=== PATIENT | male | born 1995 | race African-American/Black ===

== ENCOUNTER 2016-08-11 01:41 | Emergency (ER) | payer OTHER ==
[~2016-08-11] VITALS: Ht 177.8 cm; Wt 72.6 kg
[2016-08-11] MEDS ORDERED: LIDOCAINE W/EPINEPHRINE 1% 20ML VIAL SC ONE (07:30)
[2016-08-11] MEDS ORDERED: BUPIVACAINE HCL 0.5% 10 ML VIAL SC ONE (07:30)
[2016-08-11 12:13] VITALS: BP 135/80
== END 2016-08-11 12:40 | disposition home or self-care (01) ==
LOC: M ED 03:11
DX: S01.81XA Laceration without foreign body of other part of head, initial encounter (principal); S01.01XA Laceration without foreign body of scalp, initial encounter; Y04.8XXA Assault by other bodily force, initial encounter; Y92.410 Unspecified street and highway as the place of occurrence of the external cause; Y93.89 Activity, other specified; Y99.8 Other external cause status

== ENCOUNTER 2017-01-24 09:57 | Emergency (ER) | payer OTHER ==
[~2017-01-24] VITALS: Ht 177.8 cm; Wt 79.1 kg
[2017-01-24] MEDS ORDERED: DULO1CAP PO (10:07)
[2017-01-24] MEDS ORDERED: METOCLOPRAMIDE INJ 10MG/2ML VIAL (J2765) IV ONE (10:45)
[2017-01-24] MEDS ORDERED: NS 1,000 ML IV ONE (10:45)
[2017-01-24] MEDS ORDERED: KETOROLAC 30 MG/ML VIAL (J1885) IV ONE (10:45)
[2017-01-24] MEDS ORDERED: diphenhydrAMINE INJ 50MG/ML VIAL (J1200) IV ONE (10:45)
[2017-01-24 12:19] VITALS: BP 113/73
== END 2017-01-24 12:21 | disposition home or self-care (01) ==
LOC: M ED 09:57 → EDBD 09:57 → M ED 12:21
DX: G43.909 Migraine, unspecified, not intractable, without status migrainosus (principal); Z87.820 Personal history of traumatic brain injury; Z79.899 Other long term (current) drug therapy
CPT/HCPCS: 96361; 96374; 96375; 99283; J1200; J1885; J2765

== ENCOUNTER 2017-06-04 16:33 | Emergency (ER) | payer OTHER ==
[2017-06-04 22:07] LABS: AMORPHOUS SEDIMENT RFX MODERATE (NEGATIVE); KETONE, URINE AUTO RFX NEGATIVE (NEGATIVE); LEUKOCYTE ESTERASE UR AUTO RFX NEGATIVE (NEGATIVE); MUCUS, URINE RFX SMALL (NEGATIVE); NITRITE, URINE AUTO RFX NEGATIVE (NEGATIVE); RBC, URINE AUTO RFX 122 /HPF (0-3); SPECIFIC GRAVITY UR AUTO RFX 1.015 (1.002-1.035); SQUAM EPITHELIAL CELL UR AURFX 0 /HPF (0-6); WBC, URINE AUTO RFX 2 /HPF (0-3)
[2017-06-04 22:59] LABS: ANION GAP 7 MEQ/L (8-16); BLOOD UREA NITROGEN 11 MG/DL (7-18); CALCIUM LEVEL 9.3 MG/DL (8.5-10.1); CARBON DIOXIDE LEVEL 29 MEQ/L (21-32); CHLORIDE LEVEL 103 MEQ/L (98-107); CPK CREATINE PHOSPHOKINASE 158 U/L (39-308); CREATININE FOR GFR 0.87 MG/DL (0.70-1.30); GLOMERULAR FILTRATION RATE > 60.0 (>60); GLUCOSE, FASTING 88 MG/DL (70-100); POTASSIUM SERUM 3.9 MEQ/L (3.5-5.1); SODIUM LEVEL 139 MEQ/L (136-145)
[2017-06-05 09:48] LABS: CHLAMYDIA DNA AMPLIFICATION NEGATIVE (NEGATIVE); GC DNA AMPLIFICATION NEGATIVE (NEGATIVE)
== END 2017-06-04 23:46 | disposition home or self-care (01) ==
LOC: M ED 16:33
DX: R31.9 Hematuria, unspecified (principal); R36.1 Hematospermia; F41.9 Anxiety disorder, unspecified; F33.9 Major depressive disorder, recurrent, unspecified; G43.909 Migraine, unspecified, not intractable, without status migrainosus; Z87.820 Personal history of traumatic brain injury
CPT/HCPCS: 82550

== ENCOUNTER → 2017-06-06 | Outpatient (REF) | payer OTHER ==
[2017-06-06 20:16] LABS: BASO % 0.3 % (0.0-1.0); EOS # 0.1 10^3/uL (0.0-0.50); EOS % 0.8 % (0.0-3.0); HEMATOCRIT 43.4 % (42.0-52.0); HEMOGLOBIN 14.1 g/dl (14.0-18.0); IMMATURE GRANULOCYTE % 0.2 % (0-3.0); LYMPH # 2.1 10^3/uL (1.5-6.5); MEAN CORPUSCULAR HEMOGLOBIN 28.4 pg (27.0-33.0); MEAN CORPUSCULAR HGB CONC 32.5 g/dl (32.0-36.5); MEAN CORPUSCULAR VOLUME 87.5 fl (80.0-96.0); MONO # 0.4 10^3/uL (0.0-0.8); MONO % 5.4 % (0.0-5.0); NEUTROPHILS # 3.9 10^3/uL (1.8-7.7); NEUTROPHILS % 61.3 % (36.0-66.0); PLATELET COUNT, AUTOMATED 226 10^3/uL (150-450); RED BLOOD COUNT 4.96 10^6/uL (4.30-6.10); RED CELL DISTRIBUTION WIDTH 12.4 % (11.5-14.5); WHITE BLOOD COUNT 6.4 10^3/uL (4.0-10.0)
[2017-06-06 20:33] LABS: ALBUMIN 4.5 GM/DL (3.2-5.2); ALBUMIN/GLOBULIN RATIO 1.36 (1.00-1.93); ALKALINE PHOSPHATASE 97 U/L (45-117); ALT/SGPT 37 U/L (12-78); ANION GAP 6 MEQ/L (8-16); AST/SGOT 21 U/L (7-37); BILIRUBIN,TOTAL 0.5 MG/DL (0.2-1.0); BLOOD UREA NITROGEN 14 MG/DL (7-18); CALCIUM LEVEL 8.8 MG/DL (8.5-10.1); CARBON DIOXIDE LEVEL 30 MEQ/L (21-32); CHLORIDE LEVEL 101 MEQ/L (98-107); CREATININE FOR GFR 0.94 MG/DL (0.70-1.30); GLOMERULAR FILTRATION RATE > 60.0 (>60); GLUCOSE, FASTING 75 MG/DL (70-100); SODIUM LEVEL 137 MEQ/L (136-145); TOTAL PROTEIN 7.8 GM/DL (6.4-8.2); VALPROIC ACID (DEPAKOTE) < 3.0 UG/ML (50.0-100.0)
== END ==
LOC: M LABNEURO 18:39
DX: G44.229 Chronic tension-type headache, not intractable (principal); G43.009 Migraine without aura, not intractable, without status migrainosus
CPT/HCPCS: 80164

== ENCOUNTER → 2017-06-14 | Outpatient (REF) | payer OTHER ==
[2017-06-14 14:07] LABS: APPEARANCE, URINE CLEAR (CLEAR); BACTERIA, URINE AUTO NEGATIVE (NEGATIVE); BILIRUBIN, URINE AUTO NEGATIVE (NEGATIVE); BLOOD, URINE BLOOD NEGATIVE (NEGATIVE); COLOR, URINE YELLOW (YELLOW); GLUCOSE, URINE (UA) AUTO NEGATIVE (NEGATIVE); KETONE, URINE AUTO NEGATIVE (NEGATIVE); LEUKOCYTE ESTERASE, URINE AUTO NEGATIVE (NEGATIVE); MUCUS, URINE SMALL (NEGATIVE); NITRITE, URINE AUTO NEGATIVE (NEGATIVE); PROTEIN, URINE AUTO NEGATIVE (NEGATIVE); RBC, URINE AUTO 0 /HPF (0-3); SPECIFIC GRAVITY URINE AUTO 1.028 (1.002-1.035); SQUAMOUS EPITHELIAL CELL UR AU 0 /HPF (0-6); UROBILINOGEN, URINE AUTO 0.2 mg/dL (0.0-2.0); WBC, URINE AUTO 1 /HPF (0-3)
== END ==
LOC: M SMT 13:25
DX: R31.9 Hematuria, unspecified (principal)

== ENCOUNTER → 2017-06-20 | Outpatient (CLI) | payer OTHER ==
[~2017-06-20] MED LIST: ISOVUE-370 76% 100ML VIAL (Q9967) As Ordered
== END ==
LOC: M RAD 15:57
DX: N28.1 Cyst of kidney, acquired (principal); R31.9 Hematuria, unspecified
CPT/HCPCS: Q9967

== ENCOUNTER → 2017-09-04 | Outpatient (REF) | payer OTHER ==
[2017-09-04 19:49] LABS: AMORPHOUS SEDIMENT SMALL (NEGATIVE); APPEARANCE, URINE CLEAR (CLEAR); BACTERIA, URINE AUTO NEGATIVE (NEGATIVE); BILIRUBIN, URINE AUTO NEGATIVE (NEGATIVE); BLOOD, URINE BLOOD NEGATIVE (NEGATIVE); COLOR, URINE YELLOW (YELLOW); GLUCOSE, URINE (UA) AUTO NEGATIVE (NEGATIVE); KETONE, URINE AUTO NEGATIVE (NEGATIVE); LEUKOCYTE ESTERASE, URINE AUTO NEGATIVE (NEGATIVE); NITRITE, URINE AUTO NEGATIVE (NEGATIVE); PROTEIN, URINE AUTO NEGATIVE (NEGATIVE); RBC, URINE AUTO 1 /HPF (0-3); SPECIFIC GRAVITY URINE AUTO 1.018 (1.002-1.035); SQUAMOUS EPITHELIAL CELL UR AU 0 /HPF (0-6); UROBILINOGEN, URINE AUTO 0.2 mg/dL (0.0-2.0); WBC, URINE AUTO 0 /HPF (0-3)
== END ==
LOC: M SMT 16:55
DX: R31.0 Gross hematuria (principal)

== ENCOUNTER → 2017-11-15 | Outpatient (REF) | payer OTHER ==
[2017-11-15 14:20] LABS: SEMEN APPEARANCE OPAQUE (OPAQUE); SEMEN VISCOSITY LIQUID (LIQUID)
[2017-11-15 14:21] LABS: % NORMAL FORMS < 4 % (>=4); IMMOTILITY 79 %; NON PROGRESSIVE MOTILITY (c) 11 %; PROGRESSIVE MOTILITY (a) 10 % (>=32); SPERM ABNORMAL FORMS OTHER (SPECIFIY); SPERM CONCENTRATION 30.3 M/ml (>=15.0); SPERM# 121.2 M/Ejac (>=39); TOTAL FUNCTIONAL 0.9 M/Ejac.; TOTAL MOTILITY 21 % (>=40); TOTAL PROGRESSIVE SPERM 12.1 M/Ejac.; WBC CONCENTRATION <=1 M/ml (<=1 M/ml)
== END ==
LOC: M SMT 14:01
DX: N46.9 Male infertility, unspecified (principal)